=== PATIENT | female | born 1985 | race Asian ===

== ENCOUNTER → 2022-05-31 | Outpatient (CLI) | payer MEDICAID, SELFPAY ==
[2022-05-31 12:28] LABS: Absolute Lymphocyte Count 1.51 X10^3/uL (0.83-4.51); Absolute Neutrophil Count 3.2 X10^3/uL (2.0-7.7); Basophil# 0.04 X10^3/uL; Basophil% 0.8 % (0-1); Eosinophil# 0.03 X10^3/uL; Eosinophils% 0.6 % (0-5); Hematocrit 41.3 % (37-47); Hemoglobin 13.9 g/dL (12.0-15.0); Lymphocyte # 1.51 X10^3/ul (0.83-4.51); Lymphocyte % 28.9 % (19-41); Mean Corp Hgb Conc 33.7 g/dL (32-36); Mean Corpuscular Hgb 30.8 pg (27.0-32.0); Mean Corpuscular Volume 91.6 fL (81-99); Mean Platelet Vol. 13.5 fl (6.2-12.0); Monocyte# 0.39 X10^3/uL; Monocyte% 7.5 % (0-10); NRBC Flagged by Analyzer 0 % (0-5); Neutrophil # 3.24 X10^3/uL (2.7-7.7); Platelet Count 141 K/mm3 (150-450); RBC Distribution Width SD 47.3 fl (35.1-43.9); Red Blood Count 4.51 M/mm3 (4.2-5.4); White Blood Count 5.2 K/mm3 (4.4-11.0)
[2022-05-31 12:40] LABS: hCG Titer Quant., Serum < 1 mIU/mL (1-3)
[2022-05-31 12:47] LABS: Estradiol 146.3 pg/mL; Follicle Stimulating Hormone 6.8 mIU/mL; Luteinizing Hormone 9.1 mIU/mL; Prolactin 5.4 ng/mL; T4 Free Direct 1.18 ng/dL (0.76-1.46); Thyroid Stim Hormone (TSH) 0.53 uIU/mL (0.358-3.74)
[2022-06-02 12:57] LABS: Testosterone Free 2.2 pg/mL (0.0-4.2)
== END | disposition home or self-care (01) ==
LOC: WOBLAB 11:25
PROVIDERS: PCP Family Medicine; Visit Provider Student in an Organized Health Care Education/Training Program
DX: N93.9 Abnormal uterine and vaginal bleeding, unspecified (principal)
CPT/HCPCS: 36415; 82670; 83001; 83002; 84146; 84402; 84439; 84443; 84702; 85025

== ENCOUNTER → 2022-08-16 | Outpatient (CLI) | payer MEDICAID, SELFPAY ==
[2022-08-19 12:09] LABS: HPV APTIMA, High Risk Negative (Negative)
== END | disposition home or self-care (01) ==
LOC: LABSPEC 10:15
PROVIDERS: PCP Family Medicine; Visit Provider Obstetrics & Gynecology
DX: Z12.4 Encounter for screening for malignant neoplasm of cervix (principal)
CPT/HCPCS: 87624; 88175; G0145